=== PATIENT | male | born 1990 | race Caucasian/White ===

== ENCOUNTER 2024-01-03 20:16 | Emergency (ER) | payer SELFPAY ==
[2024-01-03 20:19] VITALS: BP 126/81; PULSE 84; RESP 18; TEMP 36.1; O2SAT 99
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
== END 2024-01-03 20:38 ==
PROVIDERS: Emergency Provider Physician Assistant
DX: Z00.8 Encounter for other general examination (principal)
CPT/HCPCS: 99281; 99283

== ENCOUNTER 2024-11-19 23:37 | Inpatient (IN) | payer MEDICAID, SELFPAY ==
[2024-11-19 23:39] VITALS: BP 152/116; PULSE 93; RESP 16; TEMP 36.4; O2SAT 100
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
[2024-11-20] VITALS (30 sets, daily range): BP systolic 108–154; BP diastolic 70–99; PULSE 75–92; RESP 17–18; TEMP 36.8–37.3; O2SAT 95–100
--- NOTE | 2024-11-20 | DI.RAD_ITS ---
Exam(s) XR HAND RT COMPLETE EXAM: XR HAND RT COMPLETE CLINICAL HISTORY: pain/swelling right ring finger/hand. TECHNIQUE: 2D digital imaging was performed of the right hand. Three images were obtained. AP, lateral and oblique views were obtained. COMPARISON: No exams were available for comparison FINDINGS: BONES: No acute fracture is present. No bony destructive lesion is seen. JOINTS: No dislocation present. SOFT TISSUE: There is soft tissue swelling of the right 4th finger. No radiopaque foreign body or soft tissue gas is seen. IMPRESSION: 1. Soft tissue swelling of the right ring finger. No soft tissue gas or radiopaque foreign body is identified. 2. No bone or joint abnormality is identified. 3. The preliminary [facility] report was reviewed. DATA REPOSITORY: RADIATION DOSE DELIVERED:
[2024-11-20] MEDS: VANCOMYCIN 1,500 MG in Normal Saline 500 ML 333.3333 MG IVPB (00:47)
[2024-11-20] MEDS: Normal Saline 1,000 ML 150 ML IV (00:47)
[2024-11-20] MEDS: Ketorolac 15 MG/ML VIAL IVP ×3 (00:47→20:17)
[2024-11-20 00:52] LABS: Abs Immature Grans 0.06 10^3/uL (0.0-0.06); HCT 37.7 % (40.0-50.0); HGB 12.9 g/dL (13.5-17.5); Immature Grans % 0.4 %; MCH 31.0 pg (27.0-33.0); MCHC 34.2 % (32.0-36.0); MCV 91 fL (80-95); MPV 9.2 fL (8.0-11.0); Platelet Count 363 10^3/uL (130-400); RBC 4.16 10^6/uL (4.36-5.78); RDW 12.9 % (11.8-14.1); RDW-SD 42.4 fL; WBC 16.74 10^3/uL (4.4-10.8)
[2024-11-20 01:12] LABS: ALT 29 U/L (16-63); AST 27 U/L (15-37); Albumin 4.1 g/dL (3.4-5.0); Alkaline Phosphatase 88 U/L (46-116); Anion Gap 9.8 mmol/L (3-11); BUN 15 mg/dL (7-18); Bilirubin, Total 0.6 mg/dL (0.2-1.0); CO2 27.2 mmol/L (21.0-32.0); Calcium 9.8 mg/dL (8.5-10.1); Chloride 101 mmol/L (98-107); Estimated GFR 119.84 (mL/min/1.73m2); Glucose 106 mg/dL (74-106); Magnesium 1.8 mg/dL (1.8-2.4); Potassium 3.5 mmol/L (3.5-5.1); Sodium 138 mmol/L (136-145); Total Protein 8.3 g/dL (6.4-8.2)
--- NOTE | 2024-11-20 01:36 | DI.[facility]_ITS ---
PROCEDURE INFORMATION: Exam: XR Right Hand Exam date and time: 11/20/2024 1:12 AM Age: 34 years old Clinical indication: Other: Pain/swelling right ring finger/hand; Additional info: Best images possible due to PT condition and cooperation. TECHNIQUE: Imaging protocol: Radiologic exam of the right hand. Views: 3 or more views. COMPARISON: No relevant prior studies available. FINDINGS: Bones/joints: No acute fracture. No acute malalignment. Healed fracture 5th metacarpal. Soft tissues: Soft tissue edema at the hand and 4th finger. IMPRESSION: No acute bony abnormality. Dictated and Authenticated by: Brice Ceballos MD. Orderin Jose Enrique Verma MD
[2024-11-20 06:48] LABS: Lab Add On Test DONE
[2024-11-20 06:51] LABS: ESR 33 mm/hr (0-15)
[2024-11-20 06:58] LABS: C-Reactive Protein 11.91 mg/dL (<or=0.5)
--- NOTE | 2024-11-20 07:22 | ED.PROG_ITS ---
Date of service: 11/20/24 Time of Service: 07:23 Medical Decision Making I received sign out on this patient who is in the emergency department in the setting of a right ring finger abscess. Patient has been seen by orthopedics. Please see separate procedure note from Dr. Werner who completed I&D. Patient will be hospitalized on the medical service. Dr. Quispe has had the patient accepted by Dr. Richard. I ordered a wound culture on this patient. Discharge Plan Disposition Patient Disposition: [facility] Discharge Details Admit Date/Time: 11/20/24 09:47 Admit Provider: Bayron Richard Attending Provider: Bayron Richard Primary Care Provider: Unknown,Unknown ED Provider: Bayron Quispe
[2024-11-20 08:31] LABS: Cannabinoids THC Positive (Negative); METHADONE URINE SCREEN Negative (Negative)
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
[2024-11-20] MEDS: Ondansetron 4 MG/2 ML VIAL IVP ×3 (08:53→16:17)
[2024-11-20] MEDS: Normal Saline Flush 10 ML SYR IVP ×4 (08:54→20:17)
--- NOTE | 2024-11-20 09:21 | W.PM.PROGNOT ---
Date of Service Date of service: 11/20/24 Time of Service: 09:21 Objective Last Vital Signs Temp 36.8 C 11/20/24 06:57 Pulse 86 11/20/24 08:54 Resp 16 11/19/24 23:39 BP 151/82 H 11/20/24 08:54 Pulse Ox 98 11/20/24 08:54 Laboratory Results - last 24 hr 11/20/24 11/20/24 00:45 08:06 WBC 16.74 H RBC 4.16 L Hgb 12.9 L Hct 37.7 L MCV 91 MCH 31.0 MCHC 34.2 RDW 12.9 Plt Count 363 MPV 9.2 Immature Gran % 0.4 Neutrophils % 73.7 Lymphocytes % 16.2 Monocytes % 8.8 Eosinophils % 0.6 Basophils % 0.3 Nucleated RBC % 0.0 Absolute Neutrophils 12.34 H Absolute Lymphocytes 2.71 Absolute Monocytes 1.47 H Absolute Eosinophils 0.10 Absolute Basophils 0.05 ESR 33 H Sodium 138 Potassium 3.5 Chloride 101 Carbon Dioxide 27.2 Anion Gap 9.8 BUN 15 Creatinine 0.8 Est GFR (CKD-EPI 2020) 119.84 Glucose 106 Calcium 9.8 Magnesium 1.8 Total Bilirubin 0.6 AST 27 ALT 29 Alkaline Phosphatase 88 C-Reactive Protein 11.91 H Total Protein 8.3 H Albumin 4.1 Urine Opiates Screen Negative Urine Methadone Screen Negative Ur Barbiturates Screen Negative Ur Tricyclics Screen Negative Ur Amphetamines Screen Negative U Benzodiazepines Scrn Negative Urine Cocaine Screen Positive A Ur THC Screen Positive A Ethyl Alcohol < 3.0 Add-On Test Request DONE
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
[2024-11-20] MEDS: Pantoprazole 40 MG VIAL IVP (10:39)
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
[2024-11-20] MEDS: Famotidine 20 MG TAB PO (14:31)
[2024-11-20] MEDS: Acetaminophen 500 MG TAB 1000 MG PO (14:31)
[2024-11-20] MEDS: VANCOMYCIN/WATER (PEG) 1.25 GM/250 ML BAG IVPB (14:32)
[2024-11-20] MEDS: cefTRIAXone 2 GM/50 ML BAG IVPB (16:17)
[2024-11-21] MEDS: VANCOMYCIN/WATER (PEG) 1.25 GM/250 ML BAG IVPB ×2 (01:31→15:17)
[2024-11-21] MEDS: Ketorolac 15 MG/ML VIAL IVP ×3 (01:31→15:16)
[2024-11-21 07:21] LABS: Abs Immature Grans 0.05 10^3/uL (0.0-0.06); HCT 41.1 % (40.0-50.0); HGB 13.9 g/dL (13.5-17.5); Immature Grans % 0.4 %; MCH 31.1 pg (27.0-33.0); MCHC 33.8 % (32.0-36.0); MCV 92 fL (80-95); MPV 9.4 fL (8.0-11.0); Platelet Count 442 10^3/uL (130-400); RBC 4.47 10^6/uL (4.36-5.78); RDW 12.9 % (11.8-14.1); RDW-SD 43.7 fL; WBC 13.23 10^3/uL (4.4-10.8)
[2024-11-21 07:33] LABS: Anion Gap 11.2 mmol/L (3-11); BUN 16 mg/dL (7-18); C-Reactive Protein 5.03 mg/dL (<or=0.5); CO2 26.8 mmol/L (21.0-32.0); Calcium 9.5 mg/dL (8.5-10.1); Chloride 100 mmol/L (98-107); Estimated GFR 124.77 (mL/min/1.73m2); Glucose 99 mg/dL (74-106); Potassium 3.3 mmol/L (3.5-5.1); Sodium 138 mmol/L (136-145)
[2024-11-21 07:37] VITALS: BP 114/73; PULSE 75; RESP 17; TEMP 37.3; O2SAT 100
[2024-11-21] MEDS: cloNIDine 0.1 MG TAB PO ×2 (08:41→17:06)
[2024-11-21] MEDS: Famotidine 20 MG TAB PO (08:41)
[2024-11-21] MEDS: Docusate Sodium 100 MG/10 ML CUP PO ×3 (08:42→20:28)
[2024-11-21] MEDS: Enoxaparin 40 MG/0.4 ML SYR SC (08:42)
[2024-11-21] MEDS: Acetaminophen 500 MG TAB 1000 MG PO ×3 (08:42→20:28)
[2024-11-21] MEDS: Normal Saline Flush 10 ML SYR IVP ×3 (08:43→20:29)
[2024-11-21 08:49] LABS: Vancomycin, Random 16.9 ug/mL
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
--- NOTE | 2024-11-21 09:59 | PGE_ITS ---
Date of Service Date of service: 11/21/24 Time of Service: 09:59 Assessment and Plan Assessment and plan (1) Sepsis: Status: Acute Assessment and plan: On admission : Tachycardia with HR 93 and WBC > 12 at 16.74. Source: Right ring finger abscess WBC 13.23 today Blood Cx results pending Wound Cx MRSA preliminary result CRP trend improving Labs in AM (2) Abscess of right ring finger: Status: Acute Assessment and plan: Ortho consult with Dr. Werner: suspicion of polymicrobial infection upon abscess drainage - broad spectrum antibiotic coverage recommended , please read notes- Zyvox recommended for MRSA at d/c Continue vancomycin and Ceftriaxone until blood Cx result and as above Continue: PT OT consult for ROM / ADL and strict right hand elevation Labs in AM Pain management is effective with APAP and Ketorolac scheduled- will continue ketoralac as needed (3) Positive urine drug screen: Status: Acute Assessment and plan: THC and cocaine in urine drug screen Continue scheduled and PRN clonidine (4) Nausea & vomiting: Status: Acute Assessment and plan: Bilious vomiting on admission- abdomen was non-acute PPI IV initiated PRN antiemetic Close electrolyte monitoring (5) Hypokalemia: Status: Acute Assessment and plan: K 3.3 oral supplementation BMP in AM (6) On deep vein thrombosis (DVT) prophylaxis: Status: Acute Assessment and plan: Continue LMWH Discussed with Dr. Richard Subjective Subjective Patient reports: feels better, still having pain, pain is less (No pain ), tolerating liquids well, tolerating a regular diet, voiding w/o difficulty, no bowel movement and other (no diaphoresis at HS ); denies diarrhea, nausea, vomiting, shortness of breath or fever Exam Narrative Exam Narrative: 34-year-old male patient no acute distress, Alert and orient ed X4, no focal neurological deficit, unlabored breathing clear lungs, S1-S2 regular no cardiac murmur, abdomen is non-distended soft nontender bowel sounds are present, no CVA tenderness, improving edema and erythema to right hand, improved ROM to right ring finger, dressing to R ring finger is DCI, Objective Last Vital Signs Temp 37.3 C 11/21/24 07:37 Pulse 75 11/21/24 07:37 Resp 17 11/21/24 07:37 BP 114/73 11/21/24 07:37 Pulse Ox 100 11/21/24 07:37 Laboratory Results - last 24 hr 11/20/24 11/21/24 09:47 07:05 WBC 13.23 H RBC 4.47 Hgb 13.9 Hct 41.1 MCV 92 MCH 31.1 MCHC 33.8 RDW 12.9 Plt Count 442 H MPV 9.4 Immature Gran % 0.4 Neutrophils % 77.8 Lymphocytes % 15.9 Monocytes % 5.6 Eosinophils % 0.0 Basophils % 0.3 Nucleated RBC % 0.0 Absolute Neutrophils 10.29 H Absolute Lymphocytes 2.10 Absolute Monocytes 0.74 Absolute Eosinophils 0.00 Absolute Basophils 0.04 Sodium 138 Potassium 3.3 L Chloride 100 Carbon Dioxide 26.8 Anion Gap 11.2 H BUN 16 Creatinine 0.7 Est GFR (CKD-EPI 2020) 124.77 Glucose 99 Calcium 9.5 C-Reactive Protein Cancelled 5.03 H Random Vancomycin 16.9 Time Spent with Patient Time Spent with Patient: >50 minutes Time was spent: preparing to see the patient(eg.review tests), obtaining and/or reviewing separately otained hiistory, ordering medications,tests, procedures, referring, communicating with other health transition of care specialist, indepentently interpreting results, counseling the patient and care coordination
[2024-11-21] MEDS: Potassium Chloride 20 MEQ TABCR 40 MEQ PO ×2 (17:06→20:28)
[2024-11-21] MEDS: Pantoprazole 40 MG VIAL IVP (17:06)
[2024-11-21] MEDS: cefTRIAXone 2 GM/50 ML BAG IVPB (17:06)
[2024-11-21 19:53] VITALS: BP 138/90; PULSE 70; RESP 16; TEMP 37.4; O2SAT 98
[2024-11-22] MEDS: cloNIDine 0.1 MG TAB PO ×3 (00:48→08:33)
[2024-11-22] MEDS: Acetaminophen 500 MG TAB 1000 MG PO ×2 (00:48→08:18)
[2024-11-22] MEDS: VANCOMYCIN/WATER (PEG) 1.25 GM/250 ML BAG IVPB (00:48)
--- NOTE | 2024-11-22 06:12 | W.PM.PROGNOT ---
Date of Service Date of service: 11/22/24 Time of Service: 07:20 Assessment and Plan Assessment and plan (1) Abrasion of right ring finger with infection: Status: Acute (2) Abscess of right ring finger: Status: Acute Assessment and plan: Manuel is a 34-year-old male who has a abscess over the dorsal aspect of the right ring finger likely from a previous abrasion that got infected. He has MRSA growing which is resistant to Bactrim and therefore I think he would be suitable for home antibiotic course with linezolid. I would fought to the hospitalist team for the antibiotic selection. I have left the wound open to the air at this point. It was getting slightly macerated. I think a dry dressing may be all that he needs on this, Band-Aid may be substantial enough for at least a small gauze dressing and a wrap. I would recommend taken off daily and covering it lightly after daily hygiene. The defect of the back of the finger will continue to heal on its own. Subjective Subjective Interval history since last seen: Manuel reports overall doing better. He feels that the finger is moving relatively fully and without significant pain. He has had some mild drainage of the dressing. His white blood cell count is come down to normal. His CRP came down drastically from hospital day 0 to hospital day #1. Most recent cultures have come back with MRSA, resistant to Bactrim. Exam Narrative Exam Narrative: Resting in the bed. No acute distress. Alert orient x 3. The right hand is exposed. The dressing is removed. There is a small area of defect and swelling over the dorsal ulnar aspect of the finger. There is some mild expressible sanguinous/purulent material. His finger range of motion is nearly full. He will make complete fist. He has active extension. Significant decrease in the surrounding erythema of the finger. Objective Last Vital Signs Temp 37.4 C 11/21/24 19:53 Pulse 70 11/21/24 19:53 Resp 16 11/21/24 19:53 BP 138/90 11/21/24 19:53 Pulse Ox 98 11/21/24 19:53 Laboratory Results - last 24 hr 11/21/24 07:05 WBC 13.23 H RBC 4.47 Hgb 13.9 Hct 41.1 MCV 92 MCH 31.1 MCHC 33.8 RDW 12.9 Plt Count 442 H MPV 9.4 Immature Gran % 0.4 Neutrophils % 77.8 Lymphocytes % 15.9 Monocytes % 5.6 Eosinophils % 0.0 Basophils % 0.3 Nucleated RBC % 0.0 Absolute Neutrophils 10.29 H Absolute Lymphocytes 2.10 Absolute Monocytes 0.74 Absolute Eosinophils 0.00 Absolute Basophils 0.04 Sodium 138 Potassium 3.3 L Chloride 100 Carbon Dioxide 26.8 Anion Gap 11.2 H BUN 16 Creatinine 0.7 Est GFR (CKD-EPI 2020) 124.77 Glucose 99 Calcium 9.5 C-Reactive Protein 5.03 H Random Vancomycin 16.9 Time Spent with Patient Time Spent with Patient: 25-34 minutes Time was spent: preparing to see the patient(eg.review tests), referring, communicating with other health managed care analyst, indepentently interpreting results and counseling the patient
[2024-11-22 07:01] LABS: Abs Immature Grans 0.03 10^3/uL (0.0-0.06); HCT 39.6 % (40.0-50.0); HGB 13.5 g/dL (13.5-17.5); Immature Grans % 0.3 %; MCH 30.7 pg (27.0-33.0); MCHC 34.1 % (32.0-36.0); MCV 90 fL (80-95); MPV 9.2 fL (8.0-11.0); Platelet Count 440 10^3/uL (130-400); RBC 4.40 10^6/uL (4.36-5.78); RDW 12.5 % (11.8-14.1); RDW-SD 41.2 fL; WBC 10.63 10^3/uL (4.4-10.8)
[2024-11-22 07:55] LABS: Anion Gap 11.2 mmol/L (3-11); BUN 10 mg/dL (7-18); CO2 23.8 mmol/L (21.0-32.0); Calcium 9.1 mg/dL (8.5-10.1); Chloride 102 mmol/L (98-107); Estimated GFR 130.72 (mL/min/1.73m2); Glucose 108 mg/dL (74-106); Magnesium 1.4 mg/dL (1.8-2.4); Potassium 3.8 mmol/L (3.5-5.1); Sodium 137 mmol/L (136-145)
[2024-11-22] MEDS: Pantoprazole 40 MG VIAL IVP (08:17)
[2024-11-22] MEDS: Enoxaparin 40 MG/0.4 ML SYR SC (08:17)
[2024-11-22] MEDS: Famotidine 20 MG TAB PO (08:18)
[2024-11-22] MEDS: Normal Saline Flush 10 ML SYR IVP ×2 (08:18→08:19)
[2024-11-22] MEDS: Docusate Sodium 100 MG CAP PO (08:18)
[2024-11-22] MEDS: Potassium Chloride 20 MEQ TABCR 40 MEQ PO (08:18)
[2024-11-22 08:37] VITALS: BP 130/92; PULSE 77; RESP 18; TEMP 36.7; O2SAT 99
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
--- NOTE | 2024-11-22 11:24 | PDOC.CMDIS ---
Date of service: 11/22/24 Time of Service: 11:24 LACE Index Scoring Tool Questions: Length of Stay (in days): 2 Was the patient admitted via the E.D.?: Yes E.D. Visits: 1 Answers: Total Score: 6 Risk of Readmission: Low Risk Care Management Discharge Plan Reason for Hospitalization: Abscess, Cellulites Discharge Plan: Manuel is discharged back to [facility] on oral antibiotics. The facility will provide transportation. The patient will follow up with facility/community providers and continue care as per the discharge plan. No new services are recommended on discharge. CM notified Amber of [facility] prior to discharge. Patient/Family Education Needs: Review discharge instructions and follow up needs after discharge. Discuss ask me three. Services Needed at Discharge: Transportation ([facility])
--- NOTE | 2024-11-22 12:59 | DSE_ITS ---
Date of service: 11/22/24 Time of Service: 13:00 DS: Diagnosis Discharge Diagnosis (1) Abrasion of right ring finger with infection: Status: Acute (2) Abscess of right ring finger: Status: Acute Discharge Plan Disposition Patient Disposition: [facility] Condition: Stable Discharge Details Reason For Visit: Abscess, Cellulitis Admit Date/Time: 11/20/24 09:47 Admit Provider: Bayron Richard Attending Provider: Bayron Richard Primary Care Provider: Unknown,Unknown Hospital Course Hospital Course: This is a 34-year-old male patient past medical history for substance abuse incarcerated at the local long term presented to the emergency department with inf ection of the right ring finger. Wound culture grew MRSA blood cultures have been negative. Plan is to discharge on 10 more days of linezolid. He can continue wound care daily with warm soapy water rinse completely dry bandage to protect. Follow-up outpatient if needed discussed with Dr Richard Home Meds and New Rx's Prescriptions: New linezolid 600 mg tablet 600 mg PO BID Qty: 20 0RF Discharge Instructions Instructions: Cellulitis (skin infection) in adults - Discharge instructions Additional Instructions: dry dressing such Band-Aid may be substantial enough for at least a small gauze dressing and a wrap. wound care daily and covering it lightly after daily hygiene to protect. Stand Alone Forms: Nursing Discharge Form Referrals: Unknown,Unknown [Primary Care Provider, Unknown] Referral Note: Follow up with CERTIFIED MEDICAL TECHNICIAN at the correctional. Activity:: Activity as Tolerated Equipment/Supplies:: No Equipment Needed Diet:: As Tolerated Discharge Orders Discharge Orders: Discharge Order (Routine); Ordered 11/22/24 Ordered By: Nancy Herrmann Discharge Data Discharge Date/Time-TO BE ENTERED AT DEPARTURE: 11/22/24 14:07 DS: Summary Time Spent with Patient providing and/or coordinating discharge services: Less than 30 minutes Status at Discharge Functional status at discharge: independent ambulation Overall status at discharge: patient is progressing back to baseline Mental Status: mental status grossly normal Speech and Movement: speech and movement normal Mood: congruent mood Affect: normal affect Exam Narrative Exam Narrative: thin chronically ill male older than stated age, head atraumatic, normocephlic, oral mucosa dry, neck full ROM, respiration even and unlabored, dressing clean dry and intact. neurologic alert awake and oriented. psychiatric cooperative, no behavioral disturbances. Psych Mental Status: mental status grossly normal Speech and Movement: speech and movement normal Mood: congruent mood Affect: normal affect DS: Data Vitals/I&O Vitals and I&O: Vital Signs Temperature 36.7 C 11/22/24 08:37 Temperature Source Temporal Artery Scan 11/22/24 08:37 Pulse 77 11/22/24 08:37 Pulse Rhythm Regular 11/20/24 13:28 Respiratory Rate 18 11/22/24 08:37 Respiratory Effort Normal, Non-Labored 11/20/24 13:28 Respiratory Depth Normal 11/20/24 13:28 Respiratory Pattern Normal 11/20/24 13:28 Blood Pressure 130/92 H 11/22/24 08:37 Blood Pressure Mean 104 11/22/24 08:37 Blood Pressure Position Supine 11/20/24 08:54 Pulse Oximetry 99 11/22/24 08:37 Oxygen Delivery Method Room Air 11/22/24 08:37 Oxygen Flow Rate 0 11/22/24 08:37 Pain Level 0 11/21/24 19:53 Comment rn notified 11/22/24 08:37 Intake & Output 11/21/24 11/22/24 11/22/24 23:59 11:59 23:59 Intake Total 260 / 520 60 / 60 Balance 260 / 520 60 / 60 Intake: IV 260 / 520 60 / 60 Other: Comment Pt voids independently Data Completed and Pending Labs on day of discharge: Labs from last 24 hours 11/22/24 06:50 WBC 10.63 RBC 4.40 Hgb 13.5 Hct 39.6 L MCV 90 MCH 30.7 MCHC 34.1 RDW 12.5 Plt Count 440 H MPV 9.2 Immature Gran % 0.3 Neutrophils % 59.9 Lymphocytes % 30.1 Monocytes % 8.9 Eosinophils % 0.2 Basophils % 0.6 Nucleated RBC % 0.0 Absolute Neutrophils 6.37 Absolute Lymphocytes 3.20 Absolute Monocytes 0.95 H Absolute Eosinophils 0.02 Absolute Basophils 0.06 Sodium 137 Potassium 3.8 Chloride 102 Carbon Dioxide 23.8 Anion Gap 11.2 H BUN 10 Creatinine 0.6 L Est GFR (CKD-EPI 2020) 130.72 Glucose 108 H Calcium 9.1 Magnesium 1.4 L Preliminary micro results at discharge 11/21/24 07:05 Blood Blood Culture - Preliminary NO GROWTH 24 HOURS 11/21/24 07:00 Blood Blood Culture - Preliminary NO GROWTH 24 HOURS 11/20/24 07:35 Finger - Right Fourth Digit Skin Culture - Preliminary Staph aureus, MRSA PFSH All Active Problems (Updated 11/21/24 @ 15:17 by Ngozi Bryant APRN) Hypokalemia (Acute) Nausea & vomiting (Acute) Positive urine drug screen (Acute) Sepsis (Acute) On deep vein thrombosis (DVT) prophylaxis (Acute) Abscess of right ring finger (Acute) Abrasion of right ring finger with infection (Acute) Social History Smoking/Tobacco Use Status: Current every day Tobacco Type: cigarettes Smoking risk assessment performed?: Yes Alcohol Intake: never Drug use: Daily Substance use type: crack/cocaine Details: Last use 11/18/24 Housing: other Do you feel safe at home: Yes Do you feel safe in your relationship?: Yes Time Spent with Patient Time Spent with Patient: <45 minutes Time was spent: preparing to see the patient(eg.review tests), obtaining and/or reviewing separately otained hiistory, ordering medications,tests, procedures, referring, communicating with other health manager long term care, indepentently interpreting results, counseling the patient and care coordination
== END 2024-11-22 14:07 | DRG 872 ==
LOC: ER 11-20 07:41 → MS 11-20 13:16
PROVIDERS: Admitting Provider Hospitalist; Emergency Provider Emergency Medicine; Responsible Provider Nurse Practitioner Acute Care; Visit Provider Hospitalist
DX: A41.9 Sepsis, unspecified organism (principal); L02.511 Cutaneous abscess of right hand; Z16.29 Resistance to other single specified antibiotic; S60.414A Abrasion of right ring finger, initial encounter; V09.20XA Pedestrian injured in traffic accident involving unspecified motor vehicles, initial encounter; S00.83XA Contusion of other part of head, initial encounter; L03.011 Cellulitis of right finger; S50.811A Abrasion of right forearm, initial encounter; F17.210 Nicotine dependence, cigarettes, uncomplicated; F14.90 Cocaine use, unspecified, uncomplicated; Z90.81 Acquired absence of spleen; R11.2 Nausea with vomiting, unspecified; E87.6 Hypokalemia; B95.62 Methicillin resistant Staphylococcus aureus infection as the cause of diseases classified elsewhere
CPT/HCPCS: 00123; 10060; 36415; 80048; 80053; 80307; 85652; 87040; 87077; 94640; 96361; 96365; 96366; 96375; 96376; 97161; 99285; J1650; 73130; 80202; 80320; 83735; 85025; 86140; 87070; 87186; 99223; 99233; 99238; J0696; J1885; J2405; J2470; J3373